=== PATIENT | male | born 1985 | race Caucasian/White ===

== ENCOUNTER → 2017-11-04 13:22 | Outpatient (CLI) | payer OTHER, SELFPAY ==
--- NOTE | 2017-11-04 | DI.RAD.S_ITS ---
PROCEDURE: FL SHOULDER INJECTION MR/CT LT INDICATIONS: PAIN IN SHOULDER MULTIPLE DISLOCATIONS TECHNIQUE: The indications, alternatives, benefits, risks, and complications of the procedure were explained to the patient. Written informed consent was obtained and placed in the chart. The shoulder was examined fluoroscopically and a site for needle placement chosen for entry into the glenohumeral joint from an anterior approach. The skin was prepped and draped in a sterile fashion, and 1% lidocaine infiltrated from skin down to joint capsule. A spinal needle was inserted into the glenohumeral joint, and a small amount of iodinated contrast media injected to confirm intra-articular placement of the needle tip. This was followed by approximately 12 mL dilute solution of a gadolinium containing MR contrast agent. The needle was removed and a dressing was applied. The patient was given postprocedural instructions and sent to the MR suite for MR imaging. FINDINGS: A single fluoroscopic spot image demonstrates intra-articular location of injected iodinated contrast. IMPRESSION: Successful fluoroscopically guided administration of dilute Gadolinium solution into the shoulder joint for MR arthrogram. Dictated by: Monty Cedillo M.D. on 11/04/2017 at 14:35 Approved by: Monty Cedillo M.D. on 11/04/2017 at 14:35
--- NOTE | 2017-11-04 | DI.MRI.S_ITS ---
PROCEDURE: MR SHOULDER LT W CON INDICATIONS: PAIN IN SHOULDER MULTIPLE DISLOCATIONS TECHNIQUE: After the administration of 12 mL of dilute intra-articular Gadolinium contrast, oblique coronal T1 and T2 spin echo with fat saturation, oblique sagittal T1 spin echo with and without fat saturation, oblique sagittal T2 fast spin echo with fat saturation, axial and ABER T1 spin echo with fat saturation through the shoulder. COMPARISON: None. FINDINGS: Image quality: Excellent. Rotator cuff: The supraspinatus, infraspinatus, and subscapularis tendons appear intact throughout. On the ABER views, the undersurface of the rotator cuff tendons appears normal. No rotator cuff muscle atrophy on sagittal images. Bones and bursae: No bone marrow contusions or fractures. Large Hill-Sachs fracture deformity of the humeral head, with no associated marrow edema and therefore chronic. Mild acromioclavicular joint degeneration. The acromion demonstrates conventional anatomy, without an os acromiale. Capsule and soft tissues: There is conspicuous absence of the anterior rim of the glenoid. In the anterior labrum is not well seen. There is thickening of the middle glenohumeral ligament raising possibility of at least some degree of labrocapsuloligamentous anatomic variation such as Maynor complex. However, given the extent of the deficiency this is probably related to remote anterior Bankart fracture, possibly with associated hypertrophy/scarring. Intrasubstance gadolinium signal intensity is seen within the superior labrum, for example image 11 series 4 suggestive of bucket handle tear. No definite posterior or anterior subluxation of the humeral head relative to the glenoid. The long head of the biceps tendon demonstrates normal location and morphology. The rotator interval appears normal, without fibrosis. The coracohumeral ligament is of normal thickness. No intra-articular bodies. IMPRESSION: Chronic Hill-Sachs fracture deformity in keeping with remote anterior shoulder dislocation. Conspicuous absence of the anterior rim of the glenoid, with adjacent thickened appearance of the middle glenohumeral ligament suggestive of labrocapsuloligamentous variation. However this could be due to chronic large anterior Bankart fracture with associated scarring/hypertrophic change. Postoperative changes are thought to be less likely although recommend correlation to prior surgical history. Intrasubstance gadolinium signal intensity within the superior labrum with bucket handle appearance suggestive of type III SLAP tear. No rotator cuff tear seen. Dictated by: Jake Will M.D. on 11/04/2017 at 15:25 Approved by: Jake Will M.D. on 11/04/2017 at 15:48
== END ==
PROVIDERS: Visit Provider General Practice
DX: M25.512 Pain in left shoulder (principal); M24.412 Recurrent dislocation, left shoulder
CPT/HCPCS: 23350; 73222; 77002

== ENCOUNTER → 2017-11-07 11:59 | Outpatient (CLI) | payer OTHER, SELFPAY ==
--- NOTE | 2017-11-07 | DI.RAD.S_ITS ---
PROCEDURE: FL SHOULDER INJECTION MR/CT RT INDICATIONS: PAIN IN SHOULDER MULTIPLE DISLOCATIONS TECHNIQUE: The indications, alternatives, benefits, risks, and complications of the procedure were explained to the patient. Written informed consent was obtained and placed in the chart. The shoulder was examined fluoroscopically and a site for needle placement chosen for entry into the glenohumeral joint from an anterior approach. The skin was prepped and draped in a sterile fashion, and 1% lidocaine infiltrated from skin down to joint capsule. A spinal needle was inserted into the glenohumeral joint, and a small amount of iodinated contrast media injected to confirm intra-articular placement of the needle tip. This was followed by approximately 12 mL dilute solution of a gadolinium containing MR contrast agent. The needle was removed and a dressing was applied. The patient was given postprocedural instructions and sent to the MR suite for MR imaging. FINDINGS: A single fluoroscopic spot image demonstrates intra-articular location of injected iodinated contrast. IMPRESSION: Successful fluoroscopically guided administration of dilute Gadolinium solution into the shoulder joint for MR arthrogram. Dictated by: Anjel Orr M.D. on 11/07/2017 at 14:50 Approved by: Anjel Orr M.D. on 11/07/2017 at 14:50
--- NOTE | 2017-11-07 | DI.MRI.S_ITS ---
PROCEDURE: MR SHOULDER RT W CON INDICATIONS: Shoulder instability. TECHNIQUE: After the administration of 12 mL of dilute intra-articular Gadolinium contrast, oblique coronal T1 and T2 spin echo with fat saturation, oblique sagittal T1 spin echo with and without fat saturation, oblique sagittal T2 fast spin echo with fat saturation, axial T1 spin echo with fat saturation through the shoulder. COMPARISON: [facility], MR, MR SHOULDER LT W CON, 11/04/2017, 14:20. FINDINGS: Image quality: Excellent. Rotator cuff: The supraspinatus, infraspinatus, and subscapularis tendons appear intact throughout. No rotator cuff muscle atrophy on sagittal images. Bones and bursae: There is small Hill-Sachs deformity of humeral head. No bone marrow contusions or fractures. No acromioclavicular joint degeneration. The acromion demonstrates conventional anatomy, without an os acromiale. Capsule and soft tissues: There is a Maynor complex with absence of anterosuperior labrum and thickened middle glenohumeral ligament. There is small bony irregularity in the anterior glenoid. The glenohumeral ligaments appear intact. The long head of the biceps tendon demonstrates normal location and morphology. The rotator interval appears normal, without fibrosis. The coracohumeral ligament is of normal thickness. No intra-articular bodies. IMPRESSION: 1. Small Hill-Sachs deformity of the humeral head. There is no marrow edema on the current MRI suggesting the injury is remote. 2. Mild irregularity in anterior glenoid in keeping with prior shoulder dislocation. 3. Maynor complex. 4. No rotator cuff tendon tear. Dictated by: Anjel Orr M.D. on 11/07/2017 at 15:24 Transcribed by: LV on 11/07/2017 at 15:55 Approved by: Anjel Orr M.D. on 11/08/2017 at 18:30
== END ==
PROVIDERS: Visit Provider General Practice
DX: M25.511 Pain in right shoulder (principal); M25.311 Other instability, right shoulder
CPT/HCPCS: 23350; 73222; 77002